=== PATIENT | female | born 1955 | race Caucasian/White ===

== ENCOUNTER 2023-05-30 11:40 | Outpatient (CLI) | payer OTHER, MEDICAID | END 2023-05-30 11:41 | disposition home or self-care (01) | LOC: CSHRAD 11:40 | PROVIDERS: ATTEND Family Medicine | DX: N39.0 Urinary tract infection, site not specified (principal); K56.41 Fecal impaction; R93.5 Abnormal findings on diagnostic imaging of other abdominal regions, including retroperitoneum | CPT/HCPCS: 74019 ==